=== PATIENT | male | born 1940 | race Caucasian/White ===

== ENCOUNTER 2022-04-15 18:47 | Emergency (ER) | payer MEDICARE ==
[~2022-04-15] VITALS: Ht 177.8 cm; Wt 73.4 kg
[2022-04-15 19:08] VITALS: BP 120/83
--- NOTE | 2022-04-15 19:24 | ED Cough/URI ---
General Chief Complaint: COVID19 Suspect/Confirmed Stated Complaint: COVID + 04/15 - COUGH - CONGESTION - BODY ACHES Source: patient (EBONY LEVY) History of Present Illness Date Seen by Provider: Apr 15, 2022 Time Seen by Provider: 19:19 Initial Comments This is an 81-year-old male that presents to the emergency room for evaluation of cough and body aches. He states they have been sick for couple days and he took a home test today which was positive for COVID-19. He states that he is not excessively short of breath and she was told that he could come here and get Paxlovid. He denies any severe chest pain, weakness, nausea, vomiting Timing/Duration: yesterday Severity/Quality: mild Prior Episodes/Possible Cause: no prior episodes (EBONY LEVY) Allergies and Home Medications Allergies Coded Allergies: No Known Drug Allergies (Unverified , 04/15/22) Patient Home Medication List Home Medication List Reviewed: Yes (EBONY LEVY) Review of Systems Review of Systems Constitutional: chills EENTM: throat pain Respiratory: cough Cardiovascular: no symptoms reported Genitourinary: no symptoms reported Musculoskeletal: muscle pain Skin: no symptoms reported (EBONY LEVY) Physical Exam Vital Signs - First Documented 04/15/22 18:58 Temp 36.6 Pulse 86 Resp 20 B/P (MAP) 120/83 (95) Pulse Ox 93 O2 Delivery Room Air (GRIFFIN,MEAGAN K DO) Capillary Refill : (EBONY LEVY) Height: '" Weight: lbs. oz. 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 We reviewed his meds/allergies and at this time will start him on Paxlovid. No evidence or suspicion of pneumonia, resp distress, severe sepsis. (EBONY LEVY) Impression Primary Impression: COVID-19 Disposition: 01 HOME, SELF-CARE Condition: Stable Departure-Patient Inst. Decision time for Depature: 19:26 (EBONY LEVY) Referrals: JESSENIA OCONNOR DO (PCP/Family) Primary Care Physician Patient Instructions: COVID-19 Home Care/Discharge ATTENDING PHYSICIAN NOTE: I WAS PHYSICALLY PRESENT ER PHYSICIAN, BUT I WAS NOT INVOLVED IN ANY DECISION MAKING OR ANY CARE OF THIS PATIENT AND I AM NOT COLLABORATING PHYSICIAN. (MEAGAN MOYA DO) EBONY LEVY Apr 15, 2022 19:24 MEAGAN MOYA DO Apr 16, 2022 04:34
[2022-04-15] MEDS ORDERED: RX-NIRMATRELVIR/RITONAVIR (PAXLOVID) #30 TABS PO SCH (19:30)
== END 2022-04-15 19:40 | disposition home or self-care (01) ==
LOC: EDUNIT# 18:47 → ER 18:50
DX: U07.1 COVID-19 (principal); Z73.0 Burn-out
CPT/HCPCS: 99283

== ENCOUNTER → 2022-08-01 | Outpatient (CLI) | payer MEDICARE ==
--- NOTE | 2022-08-01 13:00 | Diagnostic Imaging Report ---
INDICATION: COPD PA and lateral chest obtained at 11:00 hours a.m. There is no prior study for comparison. Heart is normal in size. There are biapical bullous changes and hyperinflation compatible with COPD. There is no acute infiltrate or pneumothorax or pleural fluid. Port-A-Cath over the right chest has its tip in the mid SVC. IMPRESSION: COPD changes as described above with no acute appearing abnormality. Dictated by: Dictated on workstation # [id number]
== END ==
LOC: RAD 10:43
PROVIDERS: ATTEND Physician Assistant Medical
DX: J44.1 Chronic obstructive pulmonary disease with (acute) exacerbation (principal)
CPT/HCPCS: 71046